=== PATIENT | male | born 1940 | race Caucasian/White ===

== ENCOUNTER → 2019-07-18 | Outpatient (CLI) | payer OTHER ==
[~2019-07-18] MED LIST: LEVEMIR100 UNIT/1 SUBQ; NOVOLOG100 UNIT/1 SUBQ; PRED FORTE 1% EY5 M1 OPHTHALMIC; PRILOSEC OTC20 MG PO; SIMVASTATIN40 MG PO; SYMBICORT160 MCG/4. INH; XALATAN2.5 M1 OPHTHALMIC
== END ==
LOC: SJCVC 14:53
PROVIDERS: ATTEND Internal Medicine Cardiovascular Disease
DX: I44.1 Atrioventricular block, second degree (principal); R94.31 Abnormal electrocardiogram [ECG] [EKG]; I25.10 Atherosclerotic heart disease of native coronary artery without angina pectoris; I42.9 Cardiomyopathy, unspecified; E78.5 Hyperlipidemia, unspecified; I44.7 Left bundle-branch block, unspecified; E11.9 Type 2 diabetes mellitus without complications; R00.1 Bradycardia, unspecified; R42 Dizziness and giddiness; K21.9 Gastro-esophageal reflux disease without esophagitis; Z87.891 Personal history of nicotine dependence; Z79.4 Long term (current) use of insulin; Z79.899 Other long term (current) drug therapy

== ENCOUNTER → 2019-07-19 | Outpatient (CLI) | payer OTHER | LOC: SJCVCIMAG 10:43 | DX: I44.7 Left bundle-branch block, unspecified (principal); I44.0 Atrioventricular block, first degree; I25.10 Atherosclerotic heart disease of native coronary artery without angina pectoris; I42.9 Cardiomyopathy, unspecified; E78.5 Hyperlipidemia, unspecified ==

== ENCOUNTER → 2019-07-25 | Outpatient (CLI) | payer OTHER | LOC: SJCVC 14:30 | DX: I44.2 Atrioventricular block, complete (principal); R94.31 Abnormal electrocardiogram [ECG] [EKG]; I42.8 Other cardiomyopathies; I25.10 Atherosclerotic heart disease of native coronary artery without angina pectoris; E11.9 Type 2 diabetes mellitus without complications; G47.30 Sleep apnea, unspecified; Z79.4 Long term (current) use of insulin; Z79.899 Other long term (current) drug therapy ==

== ENCOUNTER 2019-07-27 07:01 | Observation (INO) | payer OTHER ==
[~2019-07-27] VITALS: Ht 188 cm; Wt 104.3 kg
[2019-07-27] VITALS (16 sets, daily range): BP systolic 115–164; BP diastolic 53–86
--- NOTE | ~2019-07-27 | P ---
[facility] [place] [address] PROCEDURE REPORT Name: MAKEDA CISNEROS Room #: 219-P [facility].#: [id number] Admission: 07/27/19 Attend Phys: Donnie Guevara MD Discharge: Date of : 40 Report #: [id number] THIS REPORT FOR: cc: James Reid MD, Rene P. MD Couchonnal, Luis F. MD ~ CC: Donnie Reid DATE OF SERVICE: 07/27/2019 BIVENTRICULAR PACEMAKER IMPLANTATION PREOPERATIVE DIAGNOSES: 1. Complete heart block. 2. Nonischemic cardiomyopathy. 3. 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 HISTORY: The patient is a 78-year-old patient of Dr. Self who has a history of a left bundle branch block with increased fatigue, lightheadedness, and shortness of breath. He had a recent echocardiogram showing an EF of 35-40%. He wore recent telemetry monitor showing intermittent complete heart block. 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 Based on these findings and the need for 100% RV pacing, I have recommended that he undergo biventricular pacemaker implantation. This procedure needs to be done on a semi-emergent basis given his complete heart block and symptoms. ANESTHESIA: The patient underwent general anesthesia with no anesthesia related complications. DESCRIPTION OF PROCEDURE: The patient underwent informed consent. We discussed the details of the procedure including the risks, which include but not limited to bleeding, infection, vascular damage, cardiac perforation and pneumothorax. He understood these risks and is willing to proceed. The patient was brought to EP laboratory in a fasting and sedated state and prepped and draped in a sterile fashion. He underwent a venogram showing patency of left axillary vein and received IV antibiotics. Next, lidocaine was injected below the level of left clavicle. Incision was made, pocket was created over the prepectoral fascia and access was obtained twice to left axillary vein using the extrathoracic approach. Sheaths were positioned using the modified Seldinger technique. Next, I positioned the RV lead into the right ventricular apex, R waves were not that great, so I tried repositioning this several times. R waves were pretty poor throughout the RV apex and RV intraventricular septum. Finally, I found a spot with decent R waves and [facility] [address] [address] PROCEDURE REPORT Name: MAKEDA CISNEROS Room #: 219-P [facility] M.R.#: [id number] Admission: 07/27/19 Attend Phys: Donnie Guevara MD Discharge: Date of : 40 Report #: [id number] adequate pacing and sensing thresholds. Next, an atrial lead was positioned with adequate pacing and sensing thresholds. These 2 leads were sutured to the prepectoral fascia using Ethibond suture. Next, a coronary guide sheath was placed into the right atrium and the CS was found quickly. A venogram was performed and there was evidence of a nice posterolateral branch and a lead was easily positioned into this lead. There were several satisfactory pacing vectors. The guide sheath was split and the lead remained in position. The lead was sutured to the prepectoral fascia. Device was connected. Leads were found to be functioning normally. Tug tests were performed. The pocket was irrigated with vancomycin. Pocket was closed in 2 layers using 2-0 for the deep layer, 3-0 for the mid layer and surgical glue was placed to outer skin layer. The patient awoke neurologically and hemodynamically intact. No complications and no significant bleeding. The implanted pacemaker was a [employer] model #3562, serial #[id number]. Atrial lead was a [employer] model #2088TC, 52 cm, serial #[id number]. RV lead was a [employer] model #2088, 58 cm, serial #[id number]. LV lead was a [employer] model #1458, 86 cm, serial #[id number]. Atrial lead demonstrated a threshold of 1 volt at 0.4 milliseconds. P-wave 1.4 millivolts, pacing impedance 460 ohms. RV lead demonstrated R waves of 10.6 millivolts, pacing impedance of 610 ohms, pacing threshold 0.5 volts at 0.4 milliseconds. The LV lead demonstrated a threshold of 1.5 volts at 1 millisecond from the proximal poles of the LV lead. The pacing impedance was 660 ohms. The device was programmed to the DDDR 60-130 mode with the LV lead pacing 30 milliseconds prior to the RV lead. CONCLUSIONS: Successful biventricular pacemaker implantation. By: [id number] Donnie Guevara MD /nt
[2019-07-27 07:40] LABS: HEMATOCRIT 39.6 % (42.0-52.0); HEMOGLOBIN 13.1 gm/dL (14.0-18.0); MCV 96.9 fL (80.0-100.0); PLATELET COUNT 207 thou/uL (150-400); RBC 4.09 mil/uL (4.50-6.00); RDW 16.7 % (10.5-14.5); WBC 11.2 thou/uL (4.0-11.0)
[2019-07-27 07:45] LABS: CALCIUM 8.9 mg/dL (8.5-10.1); CREATININE 0.9 mg/dL (0.7-1.3); POTASSIUM 3.6 mmol/L (3.5-5.1)
[2019-07-27] MEDS ORDERED: SYMBICORT160 MCG/4. INH (08:04)
[2019-07-27] MEDS ORDERED: NOVOLOG100 UNIT/1 SUBQ (08:05)
[2019-07-27] MEDS ORDERED: LEVEMIR100 UNIT/1 SUBQ (08:07)
[2019-07-27] MEDS ORDERED: XALATAN2.5 M1 OPHTHALMIC (08:07)
[2019-07-27] MEDS ORDERED: PRILOSEC OTC20 MG PO (08:07)
[2019-07-27] MEDS ORDERED: PRED FORTE 1% EY5 M1 OPHTHALMIC (08:08)
[2019-07-27] MEDS ORDERED: SIMVASTATIN40 MG PO (08:09)
[2019-07-27 08:11] LABS: ABSOLUTE NEUTROPHILS 6.7 thou/uL (1.4-8.2); PLATELET ESTIMATE NORMAL
[2019-07-27 08:26] LABS: PROTIME 10.6 Seconds (9.3-11.4)
--- NOTE | 2019-07-27 18:01 | NUR ---
ASSUMED CARE 1200 POST PACEMAKER PROCERDURE. ALERTX4, INCISION SITE INTACT. POST PROCEDURE INTERVENTION INPLACE. HOB ELEVATED 45DEGREE, WITH LEFT SHOULD IMMOBILIZER IN PLACE. EXTERNAL MALE CATHETER INPLACE FOR INCONTINENCE. PT VOICED HE HAD PROSTATE SURGERY JUNE 2019. ON BEDREST. CALLS FOR ASSISTANCE. FALL PRECAUTIONS IN PLACE. PERSONAL ITEMS IN REACH. PLANS TO DC TOMORROW. CONTINUE TO MONITOR
[2019-07-28 05:02] VITALS: BP 153/53
[2019-07-28 08:23] VITALS: BP 144/42
[2019-07-28 10:44] VITALS: BP 144/42
--- NOTE | 2019-07-28 10:52 | NUR ---
[facility]. PT A&O X4. ASSESSMENT CHARTED. FALL PRECAUTIONS IN PLACE. PT DENIES HAVING CHEST PAIN. PT DENIES HAVING SOB. PT STATED HE HAD A HEADACHE AND MILD PAIN AROUND PACEMAKER INSICION SITE. PT RECEIVED ANALGESICS. PT STATED ANALGESICS HELPED RELIEVE PAIN. PT DISCHARGING HOME C SELF CARE. PT RECIEVED DISCHARGE EDUCATION. PT STATED UNDERSTANDING AND DENIED HAVING FURTHER QUESTIONS. IV'S DC. TELE DC. L SUBCLAVIAN PACEMAKER SITE C/D/I. APPROXIMATED WELL. NO HEMATOMA. IMMOBILIZER, PACEMAKER BOX, AND BELONGINGS SENT C PT. VITAL SIGNS STABLE. BLOOD SUGAR STABLE. PT RECIEVING HOSPITAL TRANSPORT OFF UNIT. PICKING UP PT. PT COMFORTABLE. PT DENIES HAVING FURTHER CONCERNS.
== END 2019-07-28 11:48 | disposition home or self-care (01) ==
LOC: CATH 07:01 → 2N 12:14 → CATH 14:12 → 2N 07-28 11:48
PROVIDERS: ADMIT Internal Medicine Cardiovascular Disease
DX: I25.5 Ischemic cardiomyopathy (principal); I50.9 Heart failure, unspecified
CPT/HCPCS: 70005

== ENCOUNTER → 2019-08-29 | Outpatient (CLI) | payer OTHER | LOC: SJCVC 14:45 | DX: R94.31 Abnormal electrocardiogram [ECG] [EKG] (principal); I48.0 Paroxysmal atrial fibrillation; E11.9 Type 2 diabetes mellitus without complications; I44.2 Atrioventricular block, complete; E78.00 Pure hypercholesterolemia, unspecified; I44.7 Left bundle-branch block, unspecified; I42.9 Cardiomyopathy, unspecified; I25.10 Atherosclerotic heart disease of native coronary artery without angina pectoris; Z95.0 Presence of cardiac pacemaker ==

== ENCOUNTER → 2019-10-31 | Outpatient (CLI) | payer OTHER ==
[~2019-10-31] MED LIST changes: +FLOMAX0.4 MG PO; +MULTAQ 400 MG400 MG PO; +SUPER THERAVIT1 EACH PO; +VITAMIN C1000 MG PO; +XARELTO20 MG PO
== END ==
LOC: SJCVC 14:14
PROVIDERS: ATTEND Internal Medicine Cardiovascular Disease
DX: Z45.018 Encounter for adjustment and management of other part of cardiac pacemaker (principal); R94.31 Abnormal electrocardiogram [ECG] [EKG]; I48.3 Typical atrial flutter; I25.10 Atherosclerotic heart disease of native coronary artery without angina pectoris; I42.8 Other cardiomyopathies; G47.33 Obstructive sleep apnea (adult) (pediatric); E11.9 Type 2 diabetes mellitus without complications; Z79.899 Other long term (current) drug therapy; Z87.891 Personal history of nicotine dependence

== ENCOUNTER → 2019-12-07 | Outpatient (CLI) | payer OTHER ==
[~2019-12-07] MED LIST changes: -FLOMAX0.4 MG PO; -MULTAQ 400 MG400 MG PO; -SUPER THERAVIT1 EACH PO; -VITAMIN C1000 MG PO; -XARELTO20 MG PO
== END ==
LOC: LAB 10:12
PROVIDERS: ATTEND Internal Medicine Cardiovascular Disease
DX: Z01.812 Encounter for preprocedural laboratory examination (principal); Z11.59 Encounter for screening for other viral diseases

== ENCOUNTER → 2019-12-07 | Outpatient (CLI) | payer OTHER ==
[2019-12-07 11:06] LABS: HEMATOCRIT 41.4 % (42.0-52.0); HEMOGLOBIN 13.9 gm/dL (14.0-18.0); MCH 33.3 pg (26.0-34.0); MCHC 33.7 g/dL (28.0-37.0); RBC 4.18 mil/uL (4.50-6.00); RDW 15.6 % (10.5-14.5); WBC 10.5 thou/uL (4.0-11.0)
[2019-12-07 11:24] LABS: ALBUMIN 4.1 g/dL (3.4-5.0); CALCIUM 8.4 mg/dL (8.5-10.1); CREATININE 1.1 mg/dL (0.7-1.3); POTASSIUM 4.7 mmol/L (3.5-5.1); TOTAL BILIRUBIN 0.7 mg/dL (0.2-1.0); TOTAL PROTEIN 7.1 g/dL (6.4-8.2)
== END ==
LOC: CAT 10:05
PROVIDERS: ATTEND Internal Medicine Cardiovascular Disease
DX: I25.10 Atherosclerotic heart disease of native coronary artery without angina pectoris (principal); I48.91 Unspecified atrial fibrillation; M47.9 Spondylosis, unspecified

== ENCOUNTER → 2019-12-11 | Outpatient (CLI) | payer OTHER ==
[~2019-12-11] VITALS: Ht 188 cm; Wt 108.4 kg
[~2019-12-11] MED LIST changes: +FLOMAX0.4 MG PO; +MULTAQ 400 MG400 MG PO; +SUPER THERAVIT1 EACH PO; +VITAMIN C1000 MG PO; +XARELTO20 MG PO
[2019-12-11 07:23] VITALS: BP 138/59
--- NOTE | 2019-12-11 09:16 | TEE ---
[facility] [place] [address] TRANSESOPHAGEAL ECHOCARDIOGRAM Name: MAKEDA CISNEROS Room #: REG TWYLA Mckinney#: [id number] Admission: 12/11/19 Attend Phys: Juarez Lopez MD, Discharge: Date of : 40 Report #: [id number] THIS REPORT FOR: cc: James Reid MD, Rene P. MD Lundgren, Craig H. MD [facility] ~ APPROVED REPORT Study performed: 12/11/2019 07:32:45 EXAM: Transesophageal Echocardiogram Patient Location: Out-Patient BSA: 2.31 HR: 78 bpm BP: 130/58 mmHg Rhythm: Atrial Fibrillation Other Information Study Quality: Good Indications Atrial Fibrillation Pre-ablation. Procedure After obtaining informed consent, patient underwent transesophageal echo in the [employer]. Type of Sedation : Conscious Sedation Sedation was administered by Xenia Lozada RN.. Sedation was achieved intravenously with: Versed (4.5) Fentanyl (50) Transesophageal probe was inserted and advanced into esophagus without difficulty by Juarez Lopez MD. Echo enhancement indication: R/O Septal defect. Echo enhancement agent administered: Agitated Saline The DEVIN was performed without complications. Throughout the procedure, the blood pressure, pulse oximetry, cardiac rhythm, and rate were monitored. The patient tolerated the procedure without adverse effects. Recovery from conscious sedation was uneventful and vital signs were stable. Left Ventricle The left ventricle is normal size. There is normal left ventricular [facility] [address] [place] [address] TRANSESOPHAGEAL ECHOCARDIOGRAM Name: MAKEDA CISNEROS Room #: REG [facility].#: [id number] Admission: 12/11/19 Attend Phys: Juarez Lopez, Discharge: Date of : 40 Report #: [id number] wall thickness. Left ventricular systolic function is low normal. LVEF is 45-50%. Discordant distal septal motion probably from right ventricular pacing Right Ventricle The right ventricle is normal size. The right ventricular systolic function is normal. Atria Left atrium is dilated. No thrombus is visualized in the left atrium or appendage. No shunting noted with contrast bubble injection. The right atrium size is dilated Pacemaker lead is present in the right atrium. Aortic Valve The aortic valve is normal in structure, trileaflet. Mild aortic regurgitation. There is no aortic valvular stenosis. Mitral Valve The mitral valve is normal in structure. Mild mitral regurgitation. No evidence of mitral valve stenosis. Tricuspid Valve The tricuspid valve is normal in structure. Trace tricuspid regurgitation. Pulmonic Valve The pulmonary valve is normal in structure. There is no pulmonic valvular regurgitation. Great Vessels Aortic root is dilated. (4.3cm) IVC is normal in size and collapses >50% with inspiration. Pericardium There is no pericardial effusion. <Conclusion> Left ventricular systolic function is low normal. LVEF is 45-50%. Discordant distal septal motion probably from right ventricular pacing Both atria are dilated. No thrombus is visualized in the left atrium or appendage. No shunting noted with contrast bubble injection. The aortic valve is normal in structure, trileaflet. Mild aortic regurgitation, no stenosis [facility] [address] [address] TRANSESOPHAGEAL ECHOCARDIOGRAM Name: MAKEDA CISNEROS Room #: REG CL [facility]#: [id number] Admission: 12/11/19 Attend Phys: Juarez Lopez, Discharge: Date of : 40 Report #: [id number] The mitral valve is normal in structure. Mild mitral regurgitation. Normal ascending, arch, and descending thoracic aorta There is no pericardial effusion. <ELECTRONICALLY SIGNED> By: Juarez Lopez MD, [facility] 12/11/19915 5 5 Juarez Lopez MD, FACC /INF
== END | disposition home or self-care (01) ==
LOC: CATH 06:25
PROVIDERS: ATTEND Internal Medicine
DX: I48.91 Unspecified atrial fibrillation (principal); I08.3 Combined rheumatic disorders of mitral, aortic and tricuspid valves; I42.9 Cardiomyopathy, unspecified; E10.9 Type 1 diabetes mellitus without complications; I25.10 Atherosclerotic heart disease of native coronary artery without angina pectoris; E78.5 Hyperlipidemia, unspecified; N40.0 Benign prostatic hyperplasia without lower urinary tract symptoms; K21.9 Gastro-esophageal reflux disease without esophagitis; G47.33 Obstructive sleep apnea (adult) (pediatric); H40.9 Unspecified glaucoma; Z98.890 Other specified postprocedural states; Z79.899 Other long term (current) drug therapy; Z87.891 Personal history of nicotine dependence; Z86.73 Personal history of transient ischemic attack (TIA), and cerebral infarction without residual deficits; Z79.4 Long term (current) use of insulin

== ENCOUNTER 2019-12-12 06:33 | Observation (INO) | payer OTHER ==
[~2019-12-12] VITALS: Ht 188 cm; Wt 107.5 kg
[~2019-12-12 06:33] MED LIST changes: -FLOMAX0.4 MG PO; -MULTAQ 400 MG400 MG PO
[2019-12-12 06:59] VITALS: BP 136/60
[2019-12-12] MEDS ORDERED: FLOMAX0.4 MG PO (07:08)
[2019-12-12 07:22] LABS: HEMATOCRIT 41.2 % (42.0-52.0); HEMOGLOBIN 13.9 gm/dL (14.0-18.0); MCH 33.4 pg (26.0-34.0); MCHC 33.6 g/dL (28.0-37.0); MCV 99.3 fL (80.0-100.0); PLATELET COUNT 208 thou/uL (150-400); RBC 4.15 mil/uL (4.50-6.00); RDW 15.5 % (10.5-14.5)
[2019-12-12 07:40] LABS: APTT 23.7 Seconds (24.5-32.8); CALCIUM 8.7 mg/dL (8.5-10.1); PROTIME 9.9 Seconds (9.3-11.4)
[2019-12-12 07:48] LABS: ALBUMIN 3.9 g/dL (3.4-5.0); TOTAL BILIRUBIN 0.6 mg/dL (0.2-1.0); TOTAL PROTEIN 7.2 g/dL (6.4-8.2)
[2019-12-12 08:25] LABS: ABSOLUTE NEUTROPHILS 6.3 thou/uL (1.4-8.2); ANISOCYTOSIS 1+; METAMYELOCYTES 1 %; MYELOCYTES 2 %
--- NOTE | 2019-12-12 18:54 | NUR ---
PT TO THE UNIT POST ABLATION. PT ORIENTED TO ROOM AND BEDSPACE - ASSESSMENT CHARTED - MEDS PER JUN. GROIN SITE HAS REMAINED CLEAN AND DRY - NO HEAMATOMA PRESENT. VIN DIET AND FLUIDS. PT WITH DRY HACKY COUGH dR NOTIFIED PATIENT REQUESTED BE DONE. PT BEDREST DOMPLETED - HEAD OF BED ELEVATED AND PATIENT MOVING R LEG AROUND. O2 AT 2 L NC PRN COMFORT. GIVEN TYLENOL A REQUESTED FOR CO'S OF NECK PAIN WITH GOOD RELIEF. VSS POST PROCEDURE. NO CO'S AT THE PRESENT TIME.
[2019-12-12 19:50] VITALS: BP 136/66
[2019-12-13] VITALS: BP 121/63
[2019-12-13 04:00] VITALS: BP 120/57
--- NOTE | 2019-12-13 05:26 | NUR ---
ASSESSMENTS CHARTED, MEDS GIVEN CHARTED. PATIENT CONCERNED ABOUT STAINED CEILING TILES, PLATE ON TV CABLE IS NOT ATTACHED TO THE WALL CORRECTLY. PATIENT WANTED BLOOD GLUCOSE CHECKED BECAUSE HE FELT HIS LEVEL WAS TOO HIGH. IT WAS 234. PATIENT WOULD NORMALLY TAKE 17 UNITS AT HOME. I SPOKE WITH DR. HOUSTON WHO GAVE ME AN ORDER TO CHANGE HIM TO HIGH DOSE SSI. PATIENT HAPPY WITH CHANGE. AT AROUND 0155 NEW PATIENT ARRIVED. PATIENT CALLED THE POLICE BECAUSE HE FELT PEOPLE WERE YELLING AND A MAN WAS THREATENING TO THE STAFF. THE CHARGE NURSE INFORMED ME OF THE CALL I WENT IN TO TALK TO HIM AND HE WAS VERY DISGUSTED WITH ME BECAUSE I HAD NOT HEARD YELLING. THE PATIENT NEXT DOOR BEING ADMITTED IS HARD OF HEARING SO THE NURSE AND NURSE PRACTITIONER WERE SPEAKING LOUDLY, BUT NOT YELLING. YOU COULD HEAR MUFFLED SPEAKING FROM NEXT DOOR, BUT NOT YELLING, AND NONE OF THE PEOPLE WERE A MAN. PATIENT HAS NOT SLEPT AT ALL, TOO AFRAID FOR HIS OWN SAFETY. PATIENT IS NOT HAPPY WITH ANYTHING CONCERNING TODAY'S PROCEDURE FROM THE ANESTHESIA TO NOISE ON THE UNIT AND THE SQUEAKING DOOR INTO THE STAFF BREAK ROOM. UPSET THAT THE BED ALARM IS BEING USED EVEN THOUGH HE IS DIZZY WHEN HE TRIES TO STAND. FALL PRECAUTIONS IN PLACE DURING SHIFT.
[2019-12-13] MEDS ORDERED: MULTAQ 400 MG400 MG PO (07:33)
[2019-12-13 07:38] VITALS: BP 101/64
[2019-12-13 09:06] VITALS: BP 101/64
--- NOTE | 2019-12-13 09:25 | NUR ---
ASSESSMENT CHARTED. PT ALERT AND ORIENTED. VSS. DENIED HAVING PAIN OR DISCOMFORT. RIGHT GROIN INCISION C/D/I. NO HEMATOMA NOTED. SEEN BY DR. HESTER ORDERS GIVEN TO DISCHARGE PT TO HOME. DISCHARGE INSTRUCTIONS GIVEN TO PT AND THE . THEY BOTH VERBERLISED UNDERSTANDING. PT LEFT THE FACILITY ACCOMPANIED BY THE .
--- NOTE | 2019-12-13 11:50 | P ---
[facility] [place] [address] PROCEDURE REPORT Name: MAKEDA CISNEROS Room #: 207-P [facility] Cristal MStephanie#: [id number] Admission: 12/12/19 Attend Phys: Donnie Guevara MD Discharge: 12/13/19 Date of : 40 Report #: [id number] THIS REPORT FOR: cc: ALEYDA - No family physician/PCP FAM - No family physician/PCP Donnie Guevara MD ~ CC: ALEYDA physician/PCP Donnie Guevara PREOPERATIVE DIAGNOSIS: 1. Atrial fibrillation. 2. Atrial flutter. PROCEDURES PERFORMED: 1. Atrial fibrillation ablation, CPT code 38998. 2. 3D mapping, CPT code 62952. 3. Intracardiac echo, CPT code 62968. 4. Second pathway ablation for atrial flutter, CPT code 96920. 5. Preprocedure pacemaker reprogramming, CPT code 82623. 6. Post-procedure pacemaker reprogramming, CPT code 56752. HISTORY: The patient is a 78-year-old status post recent biventricular pacemaker implantation for symptomatic bradycardia with heart block who has recently been diagnosed with recurrent atrial fibrillation and atrial flutter on his device. He is here for AFib, atrial flutter ablation. ANESTHESIA: The patient underwent general anesthesia with no anesthesia related complications. DESCRIPTION OF PROCEDURE: The patient underwent informed consent. We discussed the details of the procedure including the risks, which include but not limited to bleeding, vascular damage, stroke, VA as well as damage to the chevak conduction system requiring permanent pacemaker. As such, the patient was brought to EP laboratory in fasting and sedated state and prepped and draped in a sterile fashion. I obtained access to the right femoral vein x 3, placing 8, 9 and 7-Afghan short sheath in the right femoral vein. Under fluoroscopy, a decapolar catheter was placed in the right atrium. I initially attempted to place this in the coronary sinus, but he recently had a newly placed LV lead and did not want to dislodge the newly placed LV lead. ICE catheter was placed in the right atrium and a detailed 3D geometry of the right atrium was created using AFTER-MOUSEund and this was merged with the cardiac CT scan. At baseline, the patient was in atrial flutter with an atrial cycle length of 320 milliseconds. Next, the patient was systemically heparinized and transseptal was performed using an SL1 sheath and a Quincy needle. This was straightforward and I exchanged for the cryo sheath and via the cryo sheath, I placed a Lasso catheter in the left atrium and created a detailed 3D geometry of the left atrium. I then placed the cryoballoon into the left atrium and we performed a 4-minute [facility] [address] [place] [address] PROCEDURE REPORT Name: MAKEDA CISNEROS Room #: 207-P ALAN Bee M.RAzeb#: [id number] Admission: 12/12/19 Attend Phys: Donnie Guevara MD Discharge: 12/13/19 Date of : 40 Report #: [id number] freeze followed by a 3-minute freeze and this vein was isolated. I then turned my attention to the left inferior pulmonary vein. This vein underwent two 4-minute freezes and the vein was isolated as well. I then turned my attention to the right superior pulmonary vein, which underwent a 4-minute followed by a 3-minute freeze with isolation and then I turned my attention to the right inferior pulmonary vein, which underwent two 4-minute freezes, which did not result in isolation and then I decided to perform some injections to see where the leak was occurring and it was leaking inferiorly. I therefore performed a third 4-minute freeze, which resulted in isolation. Next, I went to the right atrium to perform atrial flutter ablation. We performed an activation map and it appeared that this was likely right-sided flutter. Again I did not want to put my decapolar catheter into the coronary sinus. Therefore, I performed ablation using an 8 mm ablation catheter via a ramp sheath at 6 o'clock along the cavotricuspid isthmus and there was not termination of the atrial flutter. Therefore, at this point, I decided to perform a more formal mapping. I carefully placed the decapolar catheter in the coronary sinus and this actually terminated the flutter. I was able to re-induce it with pacing and then based on this activation it did not appear that it was likely right-sided. I, therefore, went back to the left atrium and created a repeat activation map and I also performed entrainment within the CS with the 8 mm ablation catheter and also along the left inferior pulmonary vein. The roof region and anterior right atrium and all the PPI minus tachycardia cycle lengths were very long. Therefore, it is not entirely clear where this atrial flutter was originating from. Again, it would terminate at times and I could induce it with atrial burst pacing. I empirically performed flutter line from the left inferior pulmonary vein down to the mitral isthmus, but this did not result in termination. Again, the tachycardia terminated on its own. As such, the procedure was concluded. Catheters and sheaths were pulled. Hemostasis was obtained. The patient awoke neurologically and hemodynamically intact. No complications and no significant bleeding. CONCLUSIONS: 1. Successful AFib ablation with isolation of the pulmonary veins. 2. Successful atrial flutter ablation with evidence of bidirectional block. 3. Unsuccessful ablation of likely left atrial flutter versus atrial tachycardia that could not be completely defined. <ELECTRONICALLY SIGNED> By: Donnie Guevara MD 12/13/19 1150 [id number] Donnie Guevara MD /nt
== END 2019-12-13 09:28 | disposition home or self-care (01) ==
LOC: CATH 06:33 → 2N 13:36
PROVIDERS: ADMIT Internal Medicine Cardiovascular Disease; ATTEND Internal Medicine Cardiovascular Disease
DX: I48.91 Unspecified atrial fibrillation (principal); I48.92 Unspecified atrial flutter; I42.8 Other cardiomyopathies; I44.1 Atrioventricular block, second degree; E11.9 Type 2 diabetes mellitus without complications; G47.33 Obstructive sleep apnea (adult) (pediatric); N40.0 Benign prostatic hyperplasia without lower urinary tract symptoms; I25.10 Atherosclerotic heart disease of native coronary artery without angina pectoris; Z79.4 Long term (current) use of insulin; Z79.899 Other long term (current) drug therapy
CPT/HCPCS: 62110; 62900; 65020; 65040; 70005

== ENCOUNTER → 2020-03-13 | Outpatient (CLI) | payer OTHER ==
[~2020-03-13] MED LIST changes: +FLOMAX0.4 MG PO; +MULTAQ 400 MG400 MG PO
== END ==
LOC: SJCVC 13:10
PROVIDERS: ATTEND Internal Medicine Cardiovascular Disease
DX: R94.31 Abnormal electrocardiogram [ECG] [EKG] (principal); I49.1 Atrial premature depolarization; I44.2 Atrioventricular block, complete; I48.0 Paroxysmal atrial fibrillation; I48.3 Typical atrial flutter; I42.9 Cardiomyopathy, unspecified; G47.33 Obstructive sleep apnea (adult) (pediatric); I25.10 Atherosclerotic heart disease of native coronary artery without angina pectoris; E11.9 Type 2 diabetes mellitus without complications; K21.9 Gastro-esophageal reflux disease without esophagitis; Z95.0 Presence of cardiac pacemaker; Z79.4 Long term (current) use of insulin; Z79.899 Other long term (current) drug therapy; Z87.891 Personal history of nicotine dependence

== ENCOUNTER → 2020-03-25 | Outpatient (CLI) | payer OTHER | LOC: SJCVC 13:36 | PROVIDERS: ATTEND Internal Medicine Cardiovascular Disease | DX: R94.31 Abnormal electrocardiogram [ECG] [EKG] (principal); I25.10 Atherosclerotic heart disease of native coronary artery without angina pectoris; E78.00 Pure hypercholesterolemia, unspecified; E11.9 Type 2 diabetes mellitus without complications; I48.0 Paroxysmal atrial fibrillation; I44.7 Left bundle-branch block, unspecified; I42.9 Cardiomyopathy, unspecified; I44.2 Atrioventricular block, complete; I48.3 Typical atrial flutter; I10 Essential (primary) hypertension; Z95.0 Presence of cardiac pacemaker ==

== ENCOUNTER → 2020-06-12 | Outpatient (CLI) | payer OTHER | LOC: SJCVC 14:56 | PROVIDERS: ATTEND Internal Medicine Cardiovascular Disease | DX: I48.0 Paroxysmal atrial fibrillation (principal); R94.31 Abnormal electrocardiogram [ECG] [EKG]; I48.3 Typical atrial flutter; I42.8 Other cardiomyopathies; E11.9 Type 2 diabetes mellitus without complications; N40.0 Benign prostatic hyperplasia without lower urinary tract symptoms; G47.33 Obstructive sleep apnea (adult) (pediatric); K21.9 Gastro-esophageal reflux disease without esophagitis; Z98.890 Other specified postprocedural states; Z95.0 Presence of cardiac pacemaker; Z88.8 Allergy status to other drugs, medicaments and biological substances; Z79.4 Long term (current) use of insulin; Z79.899 Other long term (current) drug therapy; Z87.891 Personal history of nicotine dependence ==

== ENCOUNTER → 2020-09-03 | Outpatient (CLI) | payer OTHER | LOC: SJCVC 14:39 | PROVIDERS: ATTEND Internal Medicine Cardiovascular Disease | DX: R94.31 Abnormal electrocardiogram [ECG] [EKG] (principal); I49.9 Cardiac arrhythmia, unspecified; I49.49 Other premature depolarization; I48.0 Paroxysmal atrial fibrillation; I42.9 Cardiomyopathy, unspecified; I25.10 Atherosclerotic heart disease of native coronary artery without angina pectoris; G47.33 Obstructive sleep apnea (adult) (pediatric); I48.91 Unspecified atrial fibrillation; E11.9 Type 2 diabetes mellitus without complications; N40.0 Benign prostatic hyperplasia without lower urinary tract symptoms; I48.92 Unspecified atrial flutter; I44.2 Atrioventricular block, complete; I44.7 Left bundle-branch block, unspecified; K21.9 Gastro-esophageal reflux disease without esophagitis; Z98.890 Other specified postprocedural states; Z95.0 Presence of cardiac pacemaker; Z88.8 Allergy status to other drugs, medicaments and biological substances; Z79.4 Long term (current) use of insulin; Z79.899 Other long term (current) drug therapy; Z87.891 Personal history of nicotine dependence ==

== ENCOUNTER → 2020-12-29 | Outpatient (CLI) | payer OTHER | LOC: SJCVCIMAG 07:05 | PROVIDERS: ATTEND Internal Medicine Cardiovascular Disease | DX: I49.3 Ventricular premature depolarization (principal); I08.2 Rheumatic disorders of both aortic and tricuspid valves; I44.7 Left bundle-branch block, unspecified; I25.10 Atherosclerotic heart disease of native coronary artery without angina pectoris; I25.5 Ischemic cardiomyopathy; R53.83 Other fatigue; E11.9 Type 2 diabetes mellitus without complications; I48.91 Unspecified atrial fibrillation; Z79.4 Long term (current) use of insulin; Z87.891 Personal history of nicotine dependence ==

== ENCOUNTER → 2021-01-06 | Outpatient (CLI) | payer OTHER ==
[~2021-01-06] VITALS: Ht 185.4 cm; Wt 106.6 kg
[~2021-01-06] MED LIST changes: +ASA81BEC PO; +LIPITOR40 MG PO; +TROSPIUM CHLORI20 MG PO
[2021-01-06 07:45] VITALS: BP 129/63
[2021-01-06 07:58] LABS: HEMATOCRIT 38.7 % (42.0-52.0); HEMOGLOBIN 13.2 gm/dL (14.0-18.0); MCHC 34.2 g/dL (28.0-37.0); MCV 99.5 fL (80.0-100.0); RBC 3.88 mil/uL (4.50-6.00); RDW 15.9 % (10.5-14.5); WBC 9.6 thou/uL (4.0-11.0)
[2021-01-06 08:08] LABS: CALCIUM 8.5 mg/dL (8.5-10.1); CREATININE 0.9 mg/dL (0.7-1.3); POTASSIUM 4.4 mmol/L (3.5-5.1)
--- NOTE | 2021-01-06 17:48 | CATHLAB ---
[facility] [place] [address] INVASIVE PROCEDURE REPORT Name: MAKEDA CISNEROS Room #: REG TWYLA HodgesAzeb#: [id number] Admission: 01/06/21 Attend Phys: Eduardo He MD, Discharge: Date of : 40 Report #: [id number] THIS REPORT FOR: cc: MALACHI PERSAUD FAMILY PHYSICIAN or PCP Eduardo He MD [facility] ~ APPROVED REPORT Study performed: 01/06/2021 07:16:26 Patient Details Patient Status: Out-Patient Room #: The patient is a 80 year-old male Event Personnel Eduardo He Gymnasium Teacher, Donnell Barton RN RN, Sneha Syed RTR, MOE Scrub, Tenisha Thrasher RTR Scrub, Mary Mcclelland Monitor Procedures Performed Art Access - R femoral artery* Left Heart Cath w/or w/o Coronaries [id number] [facility] 97867 Initial Mod Sed Same Phys/QHP Gr 125097 75680 Mod Sed Same Phys/QHP Ea 908088 Hemostasis w/ Mynx Indication Chest pain Procedure Narrative The Right Groin^ was infiltrated with 1% Lidocaine subcutaneous anesthesia. A PINNACLE 6FR Sheath #[id number] sheath was inserted into the . Coronary angiography was performed using coronary diagnostic catheters. The right coronary system was accessed and visualized with a JR4 catheter. The left coronary system was accessed and visualized with a JL4 catheter. The left ventricle was accessed and visualized with a STR PIG catheter. Left ventriculogram was performed in 30 degree projection. The patient tolerated the procedure well and there were no complications associated with the procedure. There was no hematoma. Intraoperative Conscious Sedation Sedation start time: 855 Case end Time: 929 Fentanyl 75 mcg Versed 1 mg [facility] [address] [place] [address] INVASIVE PROCEDURE REPORT Name: BLAYNEMAKEDA TOLU Room #: [facility] Hank#: [id number] Admission: 01/06/21 Attend Phys: Eduardo He, Discharge: Date of : 40 Report #: [id number] Fluoro Time: 1.60 minutes Dose: DAP 6272.00 cGycm2 824 mGy Contrast Type and Amount: Omnipaque 85 ml Hemodynamics The aortic pressure is 145/68 mmHg with a mean of 89 mmHg. The left ventricular pressure is 143/6 mmHg with a mean of mmHg. The left ventricular end diastolic pressure is 18 mmHg. There was no gradient across the aortic valve upon pullback. Conclusion #1 Normal left ventricular size and systolic function EF 60%. #2 left main mildly disease short giving rise to LAD and circumflex. #3 LAD is mildly ectatic mildly diseased no occlusive disease this wraps the apex. No intervention indicated. Heavy lead calcified proximal vessel. #4 circumflex OM nondominant mildly diseased. #5 large dominant right coronary with mild irregularity. Recommendations and plan: Continue aggressive risk factor modification. No indication for coronary intervention. It appears there may have been a previously placed circumflex OM stent which is widely patent. <ELECTRONICALLY SIGNED> By: Eduardo He MD, [facility] 01/06/21 1747 46 174 Eduardo He MD, FACC /INF
--- NOTE | 2021-01-07 08:17 | EKG ---
[facility] [place] [address] ELECTROCARDIOGRAM REPORT Name: MAKEDA CISNEROS Room #: REG [facility]#: [id number] Admission: 01/06/21 Attend Phys: Eduardo He MD, Discharge: Date of : 40 Report #: [id number] [facility] Test Date: 2021-01-06 Test Time: 07:24:14 Pat Name: MAKEDA CISNEROS Department: Room: Gender: Freezer Unloader: DRAGANGERRY : 1940 Requested By: Eduardo He Order Number: [id number] MD: Juarez Lopez Measurements Intervals [place] Rate: 76 P: 63 RI: 218 QRS: -29 QRSD: 133 T: 131 QT: 442 QTc: 498 Interpretive Statements Atrial-sensed ventricular-paced complexes No further analysis attempted due to paced rhythm No previous ECG available for comparison Electronically Signed On 01-07-2021 8:17:32 CDT by Juarez Lopez [email or web address] <ELECTRONICALLY SIGNED> By: Juarez Lopez MD, [facility] 01/07/2117 07 Juarez Lopez MD, FACC /EPI
== END | disposition home or self-care (01) ==
LOC: CATH 06:38
PROVIDERS: ATTEND Internal Medicine Cardiovascular Disease
DX: R07.9 Chest pain, unspecified (principal); I25.10 Atherosclerotic heart disease of native coronary artery without angina pectoris; I10 Essential (primary) hypertension; E78.5 Hyperlipidemia, unspecified; E10.9 Type 1 diabetes mellitus without complications; H40.9 Unspecified glaucoma; K21.9 Gastro-esophageal reflux disease without esophagitis; G47.33 Obstructive sleep apnea (adult) (pediatric); N40.0 Benign prostatic hyperplasia without lower urinary tract symptoms; Z98.890 Other specified postprocedural states; Z79.899 Other long term (current) drug therapy; Z87.891 Personal history of nicotine dependence; Z88.8 Allergy status to other drugs, medicaments and biological substances; Z79.82 Long term (current) use of aspirin